=== PATIENT | female | born 1940 | race Hispanic/Latino ===

== ENCOUNTER → 2022-02-07 | Outpatient (CLI) | payer OTHER, MEDICARE | END | disposition home or self-care (01) | LOC: RAH 12:59 | PROVIDERS: ATTEND Internal Medicine | DX: I08.8 Other rheumatic multiple valve diseases (principal); I11.9 Hypertensive heart disease without heart failure; R06.09 Other forms of dyspnea | CPT/HCPCS: 71046; 93306 ==

== ENCOUNTER 2024-06-19 07:26 | Inpatient (IN) | payer OTHER, MEDICARE ==
[~2024-06-19] VITALS: Ht 157.5 cm; Wt 54.6 kg
--- NOTE | 2024-06-19 07:39 | NUR ---
PT JUST NOW ASSIGNED TO MY ED BED 11 BUT HAS NOT BEEN PLACED OF YET.
--- NOTE | 2024-06-19 07:40 | ERN ---
General Chief Complaint: Shortness of Breath Stated Complaint: COUGH AND CONGESTION Time Seen by MD: 07:39 Source: patient History of Present Illness Initial Comments Patient is an 84-year-old female with a past medical history of hypotension, diabetes, hypercholesteremia anemia, who presented to the emergency room today with a one day history of cough and shortness of breath. Patient was accompanied by the daughter who gave the history because patient is a poor historian. States that the we admitted at [facility] for about a week and had just been discharged yesterday and sent to rehab, however patient started with the symptoms and they decided to bring her to the emergency room for further evaluation and treatment. States that the cough was gradual in onset and productive of whitish phlegm. There was associated shortness of breath .Denies any fever, chills, chest pain, or palpitations. According to EMS who brought the patient to the ED, at home patient had oxygen saturation at 85%, patient was placed on 4 L of oxygen via nasal cannula and is presently maintaining saturation at 94%. Patient also complains of difficulty sleeping states that patient has not been able to sleep in the past 24 hours. Allergies: Coded Allergies: No Known Drug Allergies (Unverified Allergy, Unknown, 06/19/24) Home Meds Reported Medications Lorazepam (Lorazepam Intensol) 2 Mg/Ml Oral.conc, 0.5 MG PO Q4HPRN PRN for ANXIETY/AGITATION for 10 Days, #30 ML 0 Refills NEEDED 06/22/24 Discontinued Reported Medications Lorazepam (Lorazepam Intensol) 2 Mg/Ml Oral.conc, 0.25 ML PO Q4H for 20 Days, #30 ML 0 Refills NEEDED 06/22/24 Discontinued Scripts Sennosides (Senna) 8.6 Mg Tablet, 17.2 MG PO BID, #90 TAB Prov:MERLE KAPADIA MD 06/19/24 Rosuvastatin Calcium (Rosuvastatin Calcium) 40 Mg Tablet, 40 MG PO HS, #90 TAB Prov:MERLE KAPADIA MD 06/19/24 Cyclosporine (Restasis) 0.05 % Droperette, 1 EACH OP BID, #90 DROP Prov:MERLE KAPADIA MD 06/19/24 Pramipexole Di-HCl (Pramipexole Dihydrochloride) 1 Mg Tablet, 1 MG PO TID, #90 TAB Prov:MERLE KAPADIA MD 06/19/24 Potassium Chloride (K-Tab ER) 20 Meq Tablet.er, 20 MEQ PO DAILY, #90 TAB Prov:MERLE KAPADIA MD 06/19/24 Pantoprazole Sodium (Pantoprazole Sodium) 40 Mg Tablet.dr, 40 MG PO DAILY, #90 TAB Prov:MERLE KAPADIA MD 06/19/24 Nystatin (Nystatin) 100,000 Unit/Gram Oint, 1 APPL TP TID for 30 Days, #15 GM 0 Refills apply to affected area(s) FACE Prov:MERLE KAPADIA MD 06/19/24 Mupirocin (Mupirocin Ointment) 2 % Oint, 1 APPL TP TID for 30 Days, #22 GM 0 Refills apply to affected area(s) RIGHT THUMB Prov:MERLE KAPADIA MD 06/19/24 Polyethylene Glycol 3350 (Miralax) 17 Gram Powd.pack, 17 GM PO DAILY, #90 MG Prov:MERLE KAPADIA MD 06/19/24 Memantine HCl (Memantine HCl) 5 Mg Tablet, 5 MG PO HS, #90 TAB Prov:MERLE KAPADIA MD 06/19/24 Magnesium Oxide (Magnesium Oxide) 400 Mg Magnesium Tablet, 400 MG PO DAILY, #90 TAB Prov:MERLE KAPADIA MD 06/19/24 Loratadine (Loratadine) 10 Mg Tablet, 10 MG PO DAILY PRN for ALLERGIES, #90 TAB Prov:MERLE KAPADIA MD 06/19/24 Lidocaine (Lidocaine Pain Relief) 4 % Adh..patch, 1 EACH TP DAILY, #30 ADH.PATCH Prov:MERLE KAPADIA MD 06/19/24 Sitagliptin Phosphate (Januvia) 50 Mg Tablet, 50 MG PO DAILY, #90 TAB Prov:MERLE KAPADIA MD 06/19/24 Insulin Lispro (Humalog) 100 Unit/Ml Insuln.pen, 2 UNIT SQ AD, #3 SYRINGE TID AC AND HS SLIDING SCALE 70-149 = NO INSULIN 150-199=2 UNITS 200-249-3 UNITS 250-299=4 UNITS 300-349=5 UNITS >349= 6UNITS AND CALL PHYSICIAN Prov:MERLE KAPADIA MD 06/19/24 Gabapentin (Gabapentin) 400 Mg Capsule, 400 MG PO HS, #90 CAP Prov:MERLE KAPADIA MD 06/19/24 Apixaban (Eliquis) 2.5 Mg Tablet, 2.5 MG PO BID, #180 TAB Prov:MERLE KAPADIA MD 06/19/24 Cephalexin (Cephalexin) 250 Mg Tablet, 250 MG PO DAILY for 90 Days, #90 TAB Prov:MERLE KAPADIA MD 06/19/24 Amiodarone HCl (Amiodarone HCl) 200 Mg Tablet, 200 MG PO BID, #180 TAB Prov:MERLE KAPADIA MD 06/19/24 Acetaminophen (Acetaminophen) 325 Mg Tablet, 650 MG PO TID for 90 Days, #270 TAB Prov:MERLE KAPADIA MD 06/19/24 ROS Dictation Unable to get a Review of systems because of patients dementia and poor cognition Physical Exam Physical Exam Dictation General: Alert & Oriented, No acute distress. EENT: No conjunctival redness or discharge noted Tympanic membranes are clear, Normal hearing, Oral mucosa is moist, No pharyngeal erythema, No nasal discharge, No oral lesions. Neck: Non-tender, No jugular vein distention, No lymphadenopathy, No thyromegaly, Supple. Respiratory: Lungs are clear to auscultation, , Breath sounds are equal, No chest wall tenderness, _. Cardiovascular: Normal rate, Normal rhythm, No murmur, Good pulses equal in all extremities, Normal peripheral perfusion, No edema. Gastrointestinal: Soft, Non-tender, Non-distended, Normal bowel sounds, No organomegaly, _. Musculoskeletal: Normal range of motion, Normal strength, No tenderness, No swelling, No deformity, Normal gait. Integumentary: Warm, Dry, [place], Intact, No pallor, No rash. Neurologic: Alert, Oriented x4, Normal sensory, No focal defects Psychiatric: Cooperative, Appropriate mood & affect, Normal judgement, Non- suicidal. Results Laboratory and Microbiology Lab and Micro Result Laboratory Tests Test 06/19/24 08:11 06/19/24 08:13 06/19/24 08:17 White Blood Count 9.5 K/uL (4.8-10.8) Red Blood Count 4.37 MIL/uL (4.00-5.50) Hemoglobin 13.5 g/dL (12.0-16.0) Hematocrit 38.8 % (36-48) Mean Corpuscular Volume 88.8 fL (79-99) Mean Corpuscular Hemoglobin 30.9 pg (27.0-33.0) Mean Corpuscular Hemoglobin Concent 34.8 g/dL (32.0-36.0) Red Cell Distribution Width 15.1 % (11.0-15.5) Platelet Count 316 K/uL (130-400) Mean Platelet Volume 10.5 fL (7.5-10.5) Immature Granulocyte % (Auto) 0.7 % (0-1) Neutrophils (%) (Auto) 85.0 % (40.0-77.0) H Lymphocytes (%) (Auto) 5.5 % (21.0-51.0) L Monocytes (%) (Auto) 8.4 % (3.0-13.0) Eosinophils (%) (Auto) 0.3 % (0.0-8.0) Basophils (%) (Auto) 0.1 % (0.0-5.0) Neutrophils # (Auto) 8.1 K/uL (1.8-7.7) H Lymphocytes # (Auto) 0.5 K/uL (1.0-4.8) L Monocytes # (Auto) 0.8 K/uL (0.1-1.0) Eosinophils # (Auto) 0.03 K/uL (0.00-0.70) Basophils # (Auto) 0.01 K/uL (0.00-0.20) Absolute Immature Granulocyte (auto 0.07 K/uL (0-1) Nucleated Red Blood Cells 0.0 % (0.0-0.19) White Cell Morphology Comment See comments Sodium Level 132 mmol/L (136-145) L Potassium Level 3.0 mmol/L (3.5-5.1) *L Chloride Level 95 mmol/L (101-111) L Carbon Dioxide Level 33 mmol/L (21-32) H Blood Urea Nitrogen 7 mg/dL (7-18) Creatinine 0.7 mg/dL (0.5-1.0) Glomerular Filtration Rate Calc 86 mL/min (>90) Random Glucose 137 mg/dL (70-105) H Lactic Acid Level 1.5 mmol/L (0.8-2.5) Total Calcium 8.4 mg/dL (8.5-10.1) L Total Bilirubin 0.9 mg/dL (0.2-1.0) Aspartate Amino Transf (AST/SGOT) 140 U/L (10-37) H Alanine Aminotransferase (ALT/SGPT) 80 U/L (12-78) H Alkaline Phosphatase 138 U/L (50-136) H Troponin I High Sensitivity 24 ng/L (4-50) Total Protein 6.2 g/dL (6.0-8.3) Albumin 2.6 g/dL (3.5-5.0) L Lipase 14 U/L (16-77) L Blood Gas Specimen Type Arterial Arterial Blood pH 7.464 (7.350-7.450) Arterial Blood Partial Pressure CO2 36 mmHg (32-45) Arterial Blood Partial Pressure O2 52.2 mmHg (83.0-108.0) Arterial Blood HCO3 25.5 mmol/L (21.0-28.0) Arterial Blood Oxygen Saturation 89.0 % (94.0-98.0) L Arterial Blood Base Excess 2.1 mmol/L (-2.0-3.0) Blood Gas Temperature 37.0 CELSIUS (35.5-37.0) Blood Gas Flow-by 2.00 L/min (0.00-15.00) Blood Gas Vent Mode 2LNC (ROOM AIR) FiO2 28.0 % Blood Gas Specimen Comment RR MIGUEL Influenza Type A Antigen Positive For Type A Influenza Type B Antigen Negative For Type B SARS-CoV-2, RNA, NAAT NEGATIVE SARS CoV-2 MDM Potential differential diagnoses include: *Pneumonia * Acute respiratory failure with hypoxia *Dehydration *Hypokalemia Assessment: CBC was done in order to to rule any anemia, infections and to evaluate the overall health of the patient. and CMP was ordered in order to assess. various electrolytes, kidney function, liver function ,protein levels and blood glucose levels and administer medications according to the patient's complaint. Influenza a and B and COVID tests were done to rule out any viruses as a cause of the shortness of breath and cough, chest x-ray was done in order to rule out any effusion or pleural edema. Will order 1 Liter of LR for adequate hydration. I will re-evaluate the patient after treatment and diagnostic exams have returned to determine whether they require further testing, can be safely discharged home, or need admission for further treatment and evaluation. Given the social determinants of health affecting care, including literacy, access to medical care, prescription drug management, and [id number] drugs, I will ensure that treatment plans are tailored accordingly. Revaluation : Patient is alert and oriented. Patient's ABG shows oxygen 52.2, Chest xray shows pulmonary infiltrates, likely a pneumonia. Patient with respiratory distress and is currently on a ventimask. 0950: Discussed the case with Dr Kapadia, agreed to admit the patient for further evaluation and treatment. Disposition: Will admit in the hospital for further evaluation and management. Attestation: Patient's case was discussed with the ER MD. Reviewed the documentation, medical decision making and treatment plan. Agrees with the findings and plan of care. ED Course Orders Procedure Category Date Status Time Cbc With Differential LAB 06/19/24 Complete 07:40 Comprehensive LAB 06/19/24 Complete Metabolic Panel 07:40 Arterial Blood Gas RT 06/19/24 Transmitted 07:40 Chest 1vw RAD 06/19/24 Resulted 07:40 Urinalysis Profile LAB 06/19/24 Complete 07:40 Covid Rna Naat LAB 06/19/24 Complete 07:51 Lactic Acid LAB 06/19/24 Complete 07:53 Blood Cult JEANETH 06/19/24 Complete 07:53 12 Lead Ekg Tracing- EKG 06/19/24 Resulted Technical 07:53 Troponin I High LAB 06/19/24 Complete Sensitivity 07:53 0.9%Nacl 1000ml (Ns PHA 06/19/24 Complete 1000ml) 08:00 Arterial Blood Gas LAB 06/19/24 Complete 08:13 Influenza Type A & B, LAB 06/19/24 Complete Rapid 07:51 Ceftriaxone 1g Vial PHA 06/19/24 Complete (Rocephine 1g Inj) 09:00 Azithromycin 500mg+Ns PHA 06/19/24 Complete 250ml (Azithromyci 10:30 Lipase LAB 06/19/24 Complete 09:07 Us Abdominal Ruq\Ltd US 06/19/24 Resulted 09:07 Initiate Hypokalemia CPOE 06/19/24 Transmitted Po Half 09:09 Notify Physician If CPOE 06/19/24 Transmitted There Is 09:09 Notify Md On The Next CPOE 06/19/24 Transmitted 09:09 Notify Md On The CPOE 06/19/24 Transmitted Next(Cont.) 09:09 Vital Signs Date Time Temp Pulse Resp B/P (MAP) Pulse Ox O2 Delivery O2 Flow Rate FiO2 06/19/24 08:00 61 26 127/54 92 Nasal Cannula* 4 36 06/19/24 07:41 97.9 62 21 127/54 91 Nasal Cannula 2.0 DX & DISP Disposition: Inpatient Departure Impression: Primary Impression: Pneumonia Additional Impressions: Acute respiratory failure with hypoxia, Hypokalemia, Dehydration Critical Time: 30 minutes (Critical Care Procedure NoteAuthorized and Performed by: meTotal critical care time: Approximately 36 minutesDue to a high probability of clinically significant, life threatening deterioration, the patient required my highest level of preparedness to intervene emergently and I personally spent this critical care time directly and personally managing the patient. This critical care time included obtaining a history; examining the patient; pulse oximetry; ordering and review of studies; arranging urgent treatment with development of a management plan; evaluation of patient's response to treatment; frequent reassessment; and, discussions with other providers.This critical care time was performed to assess and manage the high probability of imminent, life-threatening deterioration that could result in multi-organ failure. It was exclusive of separately billable procedures and treating other patients and teaching time.Please see MDM section and the rest of the note for further information on patient assessment and treatment.) Assign Patient to: 0950:Discussed the case with Dr. Perez we will admit in the hospital for further evaluation and management Referrals: MERLE KAPADIA MD (PCP) I performed a substantive portion of the visit. I have reviewed and personally made and approve the management plan that is documented in the notes by myself with ROMA/resident. I acknowledged full responsibility for the patient's management plan. KANDY HATFIELD MD Jun 19, 2024 07:40 ADARSH SEARS DO Jun 25, 2024 20:00
--- NOTE | 2024-06-19 07:59 | NUR ---
PATIENT IS ORIENTED X1 AND UNABLE TO COMPLETE TRIAGE, WILL EDIT WHEN FAMILY COMES BY TO GET MORE DETAILS
[2024-06-19 08:15] LABS: ABG BASE EXCESS 2.1 mmol/L (-2.0-3.0); ABG HCO3 25.5 mmol/L (21.0-28.0); ABG PCO2 36 mmHg (32-45); ABG PH 7.464 (7.350-7.450); DEVICE COMMENT RR JESSE; PO2, ARTERIAL BG 52.2 mmHg (83.0-108.0); VENT MODE, BG 2LNC (ROOM AIR)
--- NOTE | 2024-06-19 08:33 | EKG ---
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
[2024-06-19 08:35] LABS: BASOPHILS # (AUTO) 0.01 K/uL (0.00-0.20); BASOPHILS % (AUTO) 0.1 % (0.0-5.0); EOSINOPHILS # (AUTO) 0.03 K/uL (0.00-0.70); EOSINOPHILS % (AUTO) 0.3 % (0.0-8.0); HEMATOCRIT 38.8 % (36-48); IMMATURE GRANULOCYTE ABSOLUTE 0.07 K/uL (0-1); LYMPHOCYTES # (AUTO) 0.5 K/uL (1.0-4.8); LYMPHOCYTES % (AUTO) 5.5 % (21.0-51.0); MEAN CORPUSCULAR HEMOGLOBIN 30.9 pg (27.0-33.0); MEAN CORPUSCULAR HGB CONC 34.8 g/dL (32.0-36.0); MEAN CORPUSCULAR VOLUME 88.8 fL (79-99); MONOCYTES # (AUTO) 0.8 K/uL (0.1-1.0); MONOCYTES % (AUTO) 8.4 % (3.0-13.0); NEUTROPHILS # (AUTO) 8.1 K/uL (1.8-7.7); PLATELET COUNT (AUTO) 316 K/uL (130-400); RED BLOOD CELL COUNT(AUTO) 4.37 MIL/uL (4.00-5.50); RED CELL DISTRIBUTION WIDTH 15.1 % (11.0-15.5); WHITE BLOOD COUNT (AUTO) 9.5 K/uL (4.8-10.8)
[2024-06-19] MEDS: 0.9%NACL 1000ML 1,000 ML IV ONE (08:45)
[2024-06-19] MEDS: cefTRIAXone 1G VIAL IVPB SCH (08:45)
[2024-06-19 08:49] LABS: ALBUMIN 2.6 g/dL (3.5-5.0); BILIRUBIN,TOTAL 0.9 mg/dL (0.2-1.0); CREATININE 0.7 mg/dL (0.5-1.0); TOTAL PROTEIN, SERUM 6.2 g/dL (6.0-8.3)
[2024-06-19 09:22] LABS: SARS-CoV-2, RNA, NAAT NEGATIVE SARS CoV-2 (NEGATIVE)
[2024-06-19 09:28] LABS: INFLUENZA TYPE B Negative For Type B (NEGATIVE)
[2024-06-19 09:51] LABS: INFLUENZA TYPE A Positive For Type A (NEGATIVE)
--- NOTE | 2024-06-19 09:51 | NUR ---
FLU A + MIGUEL KNOWLES MADE AWARE
--- NOTE | 2024-06-19 09:53 | NUR ---
PT PLACED ON DROPLET PRECAUTIONS
[2024-06-19] MEDS ORDERED: ALBUTEROL 0.083% 2.5 MG/3 ML INH IH PRN (10:00)
[2024-06-19] MEDS ORDERED: AZITHROMYCIN 500MG+NS 250ML 250 ML IVPB SCH (10:30)
[2024-06-19] MEDS ORDERED: MEMA5TAB16 PO (10:41)
[2024-06-19] MEDS ORDERED: CEPH250T PO (10:41)
[2024-06-19] MEDS ORDERED: AMIO200T68 PO (10:41)
[2024-06-19] MEDS ORDERED: MUPI22OI2 TP (10:41)
[2024-06-19] MEDS ORDERED: POTA-81 PO (10:41)
[2024-06-19] MEDS ORDERED: SENN8.6T32 PO (10:41)
[2024-06-19] MEDS ORDERED: LORA10TA7 PO (10:41)
[2024-06-19] MEDS ORDERED: PANT40TA54 PO (10:41)
[2024-06-19] MEDS ORDERED: APIX2.5T PO (10:41)
[2024-06-19] MEDS ORDERED: ROSU40TA88 PO (10:41)
[2024-06-19] MEDS ORDERED: GABA-534 PO (10:41)
[2024-06-19] MEDS ORDERED: NYST15OI4 TP (10:41)
[2024-06-19] MEDS ORDERED: MAGN400T51 PO (10:41)
[2024-06-19] MEDS ORDERED: ACET-3859 PO (10:41)
[2024-06-19] MEDS ORDERED: POLY17PO4 PO (10:41)
[2024-06-19] MEDS ORDERED: PRAM1TAB7 PO (10:41)
[2024-06-19] MEDS ORDERED: SITA50TA PO (10:41)
[2024-06-19] MEDS ORDERED: INSU100I15 SQ (10:41)
[2024-06-19] MEDS ORDERED: LIDO1ADH71 TP (10:41)
[2024-06-19] MEDS ORDERED: CYCL30DR OP (10:41)
--- NOTE | 2024-06-19 11:36 | HMCIMG ---
US ABDOMINAL RUQ\E\LTD HISTORY: Abdominal pain COMPARISON: None TECHNIQUE: Right upper quadrant abdominal ultrasound study was performed. FINDINGS: Liver measures 16 cm. Pancreas not well visualized. Gallbladder is distended. Liver is echogenic consistent with liver parenchymal disease. No gallstone is seen. Common duct measures 6 mm. No evidence of gallbladder wall thickening is seen. Right kidney measures 8.8 x 4.7 x 4.2 cm. No hydronephrosis is seen of the right kidney. Portal vein is patent. IMPRESSION: 1. No gallstones or ductal dilatation is seen. 2. No hydronephrosis is seen.
[2024-06-19 11:40] LABS: APPEARANCE,URINE CLEAR (CLEAR); BILIRUBIN,URINE NEGATIVE (NEGATIVE); COLOR,URINE LIGHT-YELLOW (YELLOW); GLUCOSE, URINE (UA) NEGATIVE (NEGATIVE); KETONES,URINE NEGATIVE (NEGATIVE); LEUKOCYTE ESTERASE ,URINE NEGATIVE Leu/uL (NEGATIVE); NITRATE,URINE NEGATIVE (NEGATIVE); OCCULT BLOOD,URINE NEGATIVE (NEGATIVE); PH,URINE 7.5 (5.0-8.0); PROTEIN,URINE 30 mg/dL (NEGATIVE); UROBILINOGEN,URINE 0.2 mg/dL (0.2-1.0)
[2024-06-19 11:49] VITALS: PULSE 63; RESP 20; O2SAT 97
[2024-06-19] MEDS: IpraTROPium/alBUTERol SULFATE 3 ML SOLUTION IH SCH (11:53)
[2024-06-19] MEDS: IpraTROPium/alBUTERol SULFATE 3 ML SOLUTION IH ONE (11:53)
--- NOTE | 2024-06-19 11:58 | HMCIMG ---
CHEST 1VW HISTORY: Shortness of breath COMPARISON: 02/07/2022 FINDINGS: A frontal projection of the chest was obtained. There are bilateral pulmonary infiltrates suggestive of pulmonary vascular congestion with possible superimposed pneumonitis. The heart is borderline enlarged. Degenerative changes are seen. No evidence of aortic calcification is seen. IMPRESSION: 1. Bilateral pulmonary infiltrates are seen suggestive of pulmonary vascular congestion with possible superimposed pneumonitis.
[2024-06-19] MEDS: IpraTROPium 0.5 MG/2.5 ML INH IH SCH (12:00)
--- NOTE | 2024-06-19 12:01 | NUR ---
SPEECH THERAPY NOTE: DINING ROOM BUSSER coordinated with RT Mario and ELENI Peña. Pt currently on ventimask at 40% due to desaturations. DINING ROOM BUSSER will follow up when patient tolerates regular nasal cannula or room air without desaturations. Recommend NPO and may consider short term alternate means of nutrition/hydration until appropriate for oral intake. All questions answered. Addendum: 06/19/[address] [facility] CHAMBERS Amended: Links added.
[2024-06-19 12:02] LABS: ADD UA MICROSCOPIC YES
[2024-06-19 12:07] LABS: MUCUS,URINE RARE LPF (None Seen); RBC,URINE 0-1 /HPF (0-1); SQUAMOUS EPITHELIAL CELL,UR RARE /HPF (0-2)
[2024-06-19] MEDS: 0.9%NACL 1000ML 1,000 ML IV SCH (12:08)
[2024-06-19] MEDS: CLINDAMYCIN IVPB 600MG/50ML 50 ML IV SCH (12:08)
[2024-06-19] MEDS: hydrOXYzine 50MG VIAL 50 MG/ML VIAL IM PRN (12:20)
--- NOTE | 2024-06-19 12:34 | NUR ---
FAMILY HAS BEEN ALTERNATING IN/OUT OF THE ROOM. ORDERS WERE OBTAINED FROM DR JONES FOR MEDICATIONS TO ASSIST PT IN RELAXING. PT IS NOT VERY COMPLIANT, ALTERED MENTITION (DEMENTIA) AND HAS BEEN PULLING OFF HER OXYGEN MASK. CURRENTLY I PLACED A N/C AT 3L IN THE MEANTIME.
--- NOTE | 2024-06-19 13:55 | NUR ---
PT CLEANED AND LINEN CHANGED/ADULT BRIEF FOR A LARGE URINE INCONTINENCE. PT TOLERATED WELL.
--- NOTE | 2024-06-19 14:29 | NUR ---
DCP: [facility] Per Bhakti at [facility], pt was discharged from to [facility] and family did not like it and took pt AMA and brought to ER requesting placement at [facility]. [facility] working on auth in hopes pt can avoid being admitted. Per Bhakti, they have recd auth for pt to go to [facility]. If Dr Kapadia approves pt can dc from er. recd call from Dr Kapadia. Pt will need to stay to stabilize before transfer to [facility]. Dr Kapadia states family is asking for information on hospice at [place]. Sw to visit with daughter and discuss
--- NOTE | 2024-06-19 14:52 | NUR ---
PT IS STILL PENDING A SPEECH EVALUATION
[2024-06-19] MEDS ORDERED: MAG/ALUM/SIMETH 30 ML UDCUP PO PRN (15:00)
[2024-06-19] MEDS ORDERED: LACTULOSE 20 GM/30 ML UDCUP PO PRN (15:00)
[2024-06-19] MEDS ORDERED: guaiFENesin-DM 200/20MG 10ML PO PRN (15:00)
--- NOTE | 2024-06-19 15:00 | NUR ---
MICHEL LEAD ENGINEER HAS BEEN IN TO SPEAK W/FAMILY.
[2024-06-19] MEDS: LORazepam 2 MG/ML 1 ML VIAL IVP PRN (15:14)
--- NOTE | 2024-06-19 15:33 | HP ---
HISTORY AND PHYSICAL Date of Visit: Jun 19, 2024 Time of Visit: 15:32 ADMISSION DATE: Jun 19, 2024 at 09:50 CC: ACUTE RESPIRATORY DISTRESS HPI: THIS IS A 84 YR OLD WOMAN WITH DEMENTIA, DM, HTN AND LUMBAR STENOSIS WHO WAS RECENTLY RELEASED FROM [facility] AFTER A PROLONGED HOSPITAL STAY FOR A UTI, DEHYDRATION, GENERALIZED DECONDITIONING, CONSTIPATION WITH BOWEL IMPACTION, PERSISTENT NAUSEA AND VOMITING AND A SEVERELY HYDROPIC GALL BLADDER 12 CM ASSOCIATED WITH METABOLIC ENCEPHALOPATHY AND BACTEREMIA X 2 WITH STAPH COAG NEG. 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 ONCE MEDICALLY TREATED AND STABILIZED THE FAMILY REQUESTED SNF PLACEMENT FOR REHAB AND POSSIBLE ALF CARE WELL THEY WERE NOT ABLE TO PROVIDE THE 24 HOUR CARE SHE NEEDED AT HOME. THEY INITIALLY CHOSE [place] BUT THEN CHANGED THERE MIND AND AGREED TO GO TO [facility]. IN THE MEANTIME AN ABDOMINAL CT OF THE ABDOMEN / GALL BLADDER WAS BENIGN. SHE DID BETTER ONCE HER BOWEL IMPACTION HAD RESOLVED. REPEAT FOLLOW UP BLOOD CULTURES WERE NEGATIVE AND SHE COMPLETED A COURSE OF PO ZYVOX. THE PATIENT CONTINUED TO HAVE INTERMITTENT EPISODES OF PSYCHOSIS IN THE EVENING AND NEEDED INTERMITTENT SEDATING MEDICATIONS TO HELP CONTROL HER BEHAVIOR. SHE CONTINUED WITH A VERY POOR APPETITE DUE TO HER UNDERLYING PROGRESSIVE DEMENTIA AND WAS GIVEN SOME NUTRITIONAL SUPPLEMENTS AND THE FAMILY WAS UPDATED ON HER POOR PROGNOSIS AND SEEMED TO UNDERSTAND AND WANTED TO PROCEED WITH SNF PLACEMENT. CODE STATUS WAS DISCUSSED BUT THEY WERE NOT READY FOR A DNR CODE STATUS OF YET BUT UNDERSTOOD HER OVERALL CONDITION WAS DECLINING. [facility] BUT UPON ADMISSION THE FAMILY DECIDED TO HAVE THE PATIENT LEAVE AMA BECAUSE IT WAS NOT TO THEIR LIKING AND DID NOT LIKE THE SERVICE. I SPOKE PERSONALLY TO THE DAUGHTER AND COULD NOT CONVINCE HER TO STAY AT LEAST THRU THE NIGHT TO TRY TO MAKE SURE WE COULD ARRANGE A SAFE DISCHARGE WITH ALL OF HER MEDICATIONS IN PLACE. SHE UNFORTUNATELY, ALREADY HAD HER IN A WHEELCHAIR AND WAS READY TO GO AND LEFT AMA. EARLY THIS AM THE DAUGHTER CALLED ME TO INFORM ME SHE CALLED EMS IN THE MIDDLE OF THE NIGHT BECAUSE SHE COULD NOT GET HER MOTHER TO SETTLE DOWN ALL NIGHT AND THEN SHE BEGAN TO HAVE ACUTE LABORED BREATHING AND CALLED EMS. THEY CONFIRMED SHE WAS DESATURATING AND PLACED HER ON O2 AND BROUG[place] [facility]. 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 ALF ANTICOAGULATION CHRONIC LBP WITH LUMBAR STENOSIS COPD 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 FIBROMYALGIA W CHRONIC PAINS DJD GEN MULT SITES GERD OSTEOPOROSIS RESTLESS LEG SYNDROME MAJOR DEPRESSION - SEVERE, SINGLE GENERALIZED ANXIETY D/O REFLUX ESOPHAGITIS ESSENTIAL TREMORS W PARKINSONIAN FEATURES HYPERLIPIDEMIA - MIXED SOCIAL HISTORY: [] FAMILY HISTORY: [] Allergies: Coded Allergies: No Known Drug Allergies (Unverified Allergy, Unknown, 06/19/24) Scheduled Acetaminophen (Acetaminophen), 650 MG PO TID Amiodarone HCl (Amiodarone HCl), 200 MG PO BID Apixaban (Eliquis), 2.5 MG PO BID Cephalexin (Cephalexin), 250 MG PO DAILY Cyclosporine (Restasis), 1 EACH OP BID Gabapentin (Gabapentin), 400 MG PO HS Insulin Lispro (Humalog), 2 UNIT SQ AD Lidocaine (Lidocaine Pain Relief), 1 EACH TP DAILY Magnesium Oxide (Magnesium Oxide), 400 MG PO DAILY Memantine HCl (Memantine HCl), 5 MG PO HS Mupirocin (Mupirocin Ointment), 1 APPL TP TID Nystatin (Nystatin), 1 APPL TP TID Pantoprazole Sodium (Pantoprazole Sodium), 40 MG PO DAILY Polyethylene Glycol 3350 (Miralax), 17 GM PO DAILY Potassium Chloride (K-Tab ER), 20 MEQ PO DAILY Pramipexole Di-HCl (Pramipexole Dihydrochloride), 1 MG PO TID Rosuvastatin Calcium (Rosuvastatin Calcium), 40 MG PO HS Sennosides (Senna), 17.2 MG PO BID Sitagliptin Phosphate (Januvia), 50 MG PO DAILY Scheduled PRN Loratadine (Loratadine), 10 MG PO DAILY PRN for ALLERGIES Review of Systems Normal Eyes:, Normal Ear/Nose/Mouth/Throat, Normal Cardiovascular:, Normal Gastrointestinal:, Normal Genitourinary:, Normal Integumentary:, Normal Musculoskeletal:, Normal Neurological:, Normal Endocrine:, Normal Hematologic/Lymphatic:, Normal Allergic/Immunologic:; Abnormal Constitutional: (AGITATED), Abnormal Respiratory: (MILD TO MODERATE RESPIRTORY DISTRESS ON O2 40% MASK), Abnormal Psychological: (VERY AGITATED AND RESTLESS) Additional ROS POOR HISTRORIAN AND HISTORY PER FAMILY AT BEDSIDE AND ER STAFF Physical Exam Vital Signs Vital Signs Date Time Temp Pulse Resp B/P (MAP) Pulse Ox O2 Delivery O2 Flow Rate FiO2 06/19/24 07:41 97.9 62 21 127/54 91 Nasal Cannula 2.0 06/19/24 11:49 40 Appearance: Other (ELDERLY RESTLESS) Eyes: Clear, PERRL, EOM Normal Respiratory: Abnormal (DISTANT BS WITH BILATERAL LL RALES AND MIDL WHEEZING INSP AND EXP) G.I.: Normal bowel sounds, No rebound tenderness Lymphatic: No lymphadenopathy neck, No lymphadenopathy axilla Musculoskeletal: Abnormal (IN BED WITH AGIATTION BUT MOVING ALL EXTERMITIES) Skin: Abnormal (FACIAL RASH - MILD ERYTHEMA) Neurology: Abnormal (MOVES ALL 4 EXTREMITIES SPEONTANOUSLY, CONFUSED ADN AGITATED) Psychology: Abnormal (POOR INSIGHT AND DISORIENTED) Diagnostics Laboratory Tests Test 06/19/24 08:11 06/19/24 08:13 06/19/24 08:17 06/19/24 11:14 Range/Units White Blood Count 9.5 4.8-10.8 K/uL Red Blood Count 4.37 4.00-5.50 MIL/uL Hemoglobin 13.5 12.0-16.0 g/dL Hematocrit 38.8 36-48 % Mean Corpuscular Volume 88.8 79-99 fL Mean Corpuscular Hemoglobin 30.9 27.0-33.0 pg Mean Corpuscular Hemoglobin Concent 34.8 32.0-36.0 g/dL Red Cell Distribution Width 15.1 11.0-15.5 % Platelet Count 316 130-400 K/uL Mean Platelet Volume 10.5 7.5-10.5 fL Immature Granulocyte % (Auto) 0.7 0-1 % Neutrophils (%) (Auto) 85.0 40.0-77.0 % Lymphocytes (%) (Auto) 5.5 21.0-51.0 % Monocytes (%) (Auto) 8.4 3.0-13.0 % Eosinophils (%) (Auto) 0.3 0.0-8.0 % Basophils (%) (Auto) 0.1 0.0-5.0 % Neutrophils # (Auto) 8.1 1.8-7.7 K/uL Lymphocytes # (Auto) 0.5 1.0-4.8 K/uL Monocytes # (Auto) 0.8 0.1-1.0 K/uL Eosinophils # (Auto) 0.03 0.00-0.70 K/uL Basophils # (Auto) 0.01 0.00-0.20 K/uL Absolute Immature Granulocyte (auto 0.07 0-1 K/uL Nucleated Red Blood Cells 0.0 0.0-0.19 % White Cell Morphology Comment See comments Sodium Level 132 136-145 mmol/L Potassium Level 3.0 3.5-5.1 mmol/L Chloride Level 95 101-111 mmol/L Carbon Dioxide Level 33 21-32 mmol/L Blood Urea Nitrogen 7 7-18 mg/dL Creatinine 0.7 0.5-1.0 mg/dL Glomerular Filtration Rate Calc 86 >90 mL/min Random Glucose 137 70-105 mg/dL Lactic Acid Level 1.5 0.8-2.5 mmol/L Total Calcium 8.4 8.5-10.1 mg/dL Total Bilirubin 0.9 0.2-1.0 mg/dL Aspartate Amino Transf (AST/SGOT) 140 10-37 U/L Alanine Aminotransferase (ALT/SGPT) 80 12-78 U/L Alkaline Phosphatase 138 50-136 U/L Troponin I High Sensitivity 24 4-50 ng/L Total Protein 6.2 6.0-8.3 g/dL Albumin 2.6 3.5-5.0 g/dL Lipase 14 16-77 U/L Blood Gas Specimen Type Arterial Arterial Blood pH 7.464 7.350-7.450 Arterial Blood Partial Pressure CO2 36 32-45 mmHg Arterial Blood Partial Pressure O2 52.2 83.0-108.0 mmHg Arterial Blood HCO3 25.5 21.0-28.0 mmol/L Arterial Blood Oxygen Saturation 89.0 94.0-98.0 % Arterial Blood Base Excess 2.1 -2.0-3.0 mmol/L Blood Gas Temperature 37.0 35.5-37.0 CELSIUS Blood Gas Flow-by 2.00 0.00-15.00 L/min Blood Gas Vent Mode 2LNC ROOM AIR FiO2 28.0 % Blood Gas Specimen Comment RR MIGUEL Influenza Type A Antigen Positive For Type A NEGATIVE Influenza Type B Antigen Negative For Type B NEGATIVE SARS-CoV-2, RNA, NAAT NEGATIVE SARS CoV-2 NEGATIVE Urine Color LIGHT-YELLOW YELLOW Urine Appearance CLEAR CLEAR Urine pH 7.5 5.0-8.0 Urine Specific [place]field 1.011 1.001-1.031 Urine Protein 30 NEGATIVE mg/dL Urine Glucose (UA) NEGATIVE NEGATIVE mg/dL Urine Ketones NEGATIVE NEGATIVE mg/dL Urine Occult Blood NEGATIVE NEGATIVE Urine Nitrate NEGATIVE NEGATIVE Urine Bilirubin NEGATIVE NEGATIVE mg/dL Urine Urobilinogen 0.2 0.2-1.0 mg/dL Urine Leukocyte Esterase NEGATIVE NEGATIVE Kristy/uL Urine RBC 0-1 0-1 /HPF Urine WBC 2-5 0-1 /HPF Urine Squamous Epithelial Cells RARE 0-2 /HPF Urine Bacteria None None Seen /HPF Assessment/Plan Assessment/Plan ASSESSMENT: THIS IS A 84 YR OLD WOMAN WITH HISTORY OF RECENT UTI DEHYDRATION GENERALIZED DECONDITIONING SEVERELY HYDROPIC GALL BLADDER 12 CM HX METABOLIC ENCEPHALOPATHY HX BACTEREMIA X 2 GPC - STAPH COAG NEG HX ABD CT OF THE ABDOMEN / GALL BLADDER - BENIGN - 06/2024 PROGRESSIVE DEMENTIA WITH BEHAVIORAL D/O GABAPENTIN WITHDRAWAL PAROX AFIB 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 PRIVACY ANALYST ANTICOAGULATION CHRONIC LBP WITH LUMBAR STENOSIS COPD 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 FIBROMYALGIA W CHRONIC PAINS DJD GEN MULT SITES GERD OSTEOPOROSIS RESTLESS LEG SYNDROME MAJOR DEPRESSION - SEVERE, SINGLE GENERALIZED ANXIETY D/O REFLUX ESOPHAGITIS ESSENTIAL TREMORS W PARKINSONIAN FEATURES HYPERLIPIDEMIA - MIXED SHE PRESENTED WITH ACUTE HYPOXIC RESPIRATORY FAILURE POSITIVE FO H FLU A ASPIRATION PNEUMONIA COPD EXACERBATION METABOLIC ENCEPHALOPATHY FAILURE TO THRIVE DEHYDRATION PLAN: STARTED ON TAMIFLU, STARTED ON CLINDAMYCIN IV NEBS SCHEDULED AND PRN O2 SUPPLEMENTATION WILL MONITOR GLUCOSE AND CONT INSULIN NEEDED HYDRATE WITH IVF SUPPLEMENT ELECTROLYTES STRESS ULCER PROPHYLAXIS DVT PROPHYLAXIS HAD A LONG DISCUSSION WITH FAMILY AND NOW ARE AGREEING TO A DNR CODE STATUS AND IMPLEMENTED ALSO DISCUSSED AND AGREEING TO HOSPICE CONSIDERATION THEY ARE WANTING SNF PLACEMENT FOR PRIVACY ANALYST CARE CONT SUPPORTIVE MEASURES PROGNOSIS REMAINS GUARDED AND THE FAMILY IS WELL AWARE MERLE JONES MD Jun 19, 2024 15:33
--- NOTE | 2024-06-19 15:38 | NUR ---
DNR STATUS: FAMILY HAS SIGNED BOTH THE IN HOSPITAL/OUT OF HOSPITAL DNR FORM
[2024-06-19] MEDS: PoTASSium chloRIDE 20MEQ/100ML 100 ML IV PRN (15:48)
--- NOTE | 2024-06-19 15:56 | NUR ---
Emelyn graves in [facility] - 06/19/24 at 1949 by [email or web address] HOSPITALIST TEAM AT BEDSIDE AGAIN AT THIS TIME
--- NOTE | 2024-06-19 16:00 | NUR ---
SPEECH THERAPY TO EVALUATE PT TOMORROW PER ADOLFO
--- NOTE | 2024-06-19 16:10 | NUR ---
AKASH KNOWLES FROM [facility] HERE TO SPEAK W/FAMILY.
--- NOTE | 2024-06-19 16:17 | NUR ---
DCP: [facility] spoke to daughters regarding hospice and code status. Daughters in agreement for hospice at [place]. Daughter in agreement with Dr Kapadia recommendation for [facility] to provider hospice services. Consent and OOHDNR signed and on chart. Referral made to Kendell to begin process and pt be ready set up when medically cleared Addendum: 06/19/24 at 1628 by JOVANNI JACKSON Amended: Links added.
[2024-06-19 19:13] VITALS: PULSE 70; RESP 18
[2024-06-19 19:14] VITALS: PULSE 70; RESP 18; O2SAT 92
--- NOTE | 2024-06-19 19:27 | NUR ---
REPORT ENDORSED TO JENNIFER KNOWLES
[2024-06-19] MEDS: SENNOSIDES 8.6 MG TABLET PO SCH (21:00)
[2024-06-19] MEDS: AMIOdarone 200 MG TABLET PO SCH (21:00)
[2024-06-19] MEDS: OSELTAMIVIR PHOSPHATE 75 MG CAP PO SCH (21:00)
[2024-06-19] MEDS: APIXaban 2.5 MG TABLET PO SCH (21:00)
[2024-06-19] MEDS: GABApentin 100 MG CAPSULE PO SCH (21:00)
[2024-06-19] MEDS: PRAMIpexole DI-HCL 0.25 MG TABLET PO SCH (21:00)
[2024-06-19] MEDS: acetaMINOPHEN 325 MG TAB PO SCH (21:00)
[2024-06-19] MEDS: NYSTATIN TP SCH (21:56)
[2024-06-19] MEDS: MUPIROCIN OINTMENT 22 GM TUBE TP SCH (21:56)
--- NOTE | 2024-06-19 22:54 | NUR ---
CHANGED OF URINARY INCONTINENCE.
[2024-06-19 23:00] VITALS: BP 134/57; PULSE 72; RESP 28; TEMP 100.1; O2SAT 90
[2024-06-19 23:54] VITALS: PULSE 70; RESP 18; RESP 22; O2SAT 92
[2024-06-20] VITALS (10 sets, daily range): BP systolic 96–152; BP diastolic 46–95; PULSE 67–85; RESP 16–28; TEMP 98.1–99.7; O2SAT 82–93
[2024-06-20] MEDS: PANTOPrazole 40 MG TAB DR PO SCH (09:00)
[2024-06-20] MEDS: PoTASSium chl 10% ELIXIR 20MEQ 20 MEQ/15 ML UDCUP PO SCH (09:00)
[2024-06-20] MEDS: MAGNESIUM OXIDE 400 MG TABLET PO SCH (09:00)
[2024-06-20] MEDS: polyETHYLene GLYCol 3350 17 GM POWD.PACK PO SCH (09:00)
[2024-06-20] MEDS: linAGLIPtin 5 MG TABLET PO SCH (09:00)
--- NOTE | 2024-06-20 09:00 | NUR ---
PATIENT VERY ANXIOUS REMOVING OXYGEN AND TRYING TO PULL OUT IV AND KICKING LEGS OVER BED. OXYGEN REPLACED ATIVAN GIVEN ORDERED. FAMILY NOW AT BEDSIDE
[2024-06-20] MEDS ORDERED: levoFLOXacin 500 MG/D5W 100 ML IV SCH (09:30)
[2024-06-20] MEDS: LIDOCAINE 4% ADH..PATCH TP SCH (09:58)
--- NOTE | 2024-06-20 10:27 | NUR ---
Per Kendell, he visited with pt and daughter. Pt very anxious and is being medicated, dose may need to be adjusted by Dr Kapadia when rounds. HE will wait and see if Dr Kapadia recommends GIP or not. Kendell to follow up after noon
[2024-06-20 10:41] LABS: HEMATOCRIT 33.3 % (36-48); MEAN CORPUSCULAR HGB CONC 34.2 g/dL (32.0-36.0); MEAN CORPUSCULAR VOLUME 90.5 fL (79-99); RED BLOOD CELL COUNT(AUTO) 3.68 MIL/uL (4.00-5.50); RED CELL DISTRIBUTION WIDTH 15.3 % (11.0-15.5); WHITE BLOOD COUNT (AUTO) 11.7 K/uL (4.8-10.8)
[2024-06-20 10:51] LABS: CREATININE 0.6 mg/dL (0.5-1.0); POTASSIUM 3.3 mmol/L (3.5-5.1)
--- NOTE | 2024-06-20 11:33 | NUR ---
SPOKE WITH FAMILY MEMBER SHERRILL ESCALANTE. PER DAUGHTER SHE ONLY WANTS COMFORT MEDS FOR PATIENT. DOES NOT WANT ANYTHING INVASIVE DONE. STATES ONLY WANTS HER MOM TO BE COMFORTABLE.DR JONES MADE AWARE OF HER DECISION
[2024-06-20] MEDS: levoFLOXacin 500 MG/D5W 100 ML IV SCH (12:05)
--- NOTE | 2024-06-20 12:28 | PN ---
Subjective Review of Systems PROGRESS NOTE Date of Visit: Jun 20, 2024 Time of Visit: 12:24 Events since last encounter CONTINUES WITH RESPIRATORY DISTRESS Subjective ON 50% FIO2 General: No Fever, No Chills, No Night Sweats, No Fatigue, No Malaise, No Appetite, No Other HEENT: No Head Aches, No Visual Changes, No Eye Pain, No Ear Pain, No Dys phasia, No Sinus Congestion, No Post Nasal Drip, No Sore Throat, No Other Pulmonary: Dyspnea; No Cough, No Pleuritic Chest Pain, No Other Cardiovascular: No: Chest Pain, Palpitations, Orthopnea, Paroxysmal Noc. D yspnea, Edema, Lt Headedness, Other Gastrointestinal: No: Nausea, Vomiting, Abdominal Pain, Diarrhea, Constipation, Melena, Hematochezia, Other Genitourinary: No Dysuria, No Frequency, No Incontinence, No Hematuria, No Retention, No Other Musculoskeletal: back pain; No: other, neck pain, shoulder pain, arm pain, hand pain, leg pain, foot pain Skin: No Urticaria, No Rash, No Other Neurological: Weakness, Confusion; No: Numbness, Incoordination, Change in speech, Seizures, Other Objective Vitals and I/O Vital Sign (Last 24 Hours) 06/20/24 06/20/24 11:16 12:00 Temp 99.7 Pulse 70 Resp 16 B/P (MAP) 152/95 Pulse Ox 82 O2 Delivery Nasal Cannula O2 Flow Rate 15.0 FiO2 100 Intake & Output (last 24hrs) 06/19/24 06/19/24 06/20/24 15:00 23:00 07:00 Intake Total 1850.0 ml Balance 1850.0 ml General: moderate distress HEENT: Atraumatic, PERRLA Neck: Supple, No JVD Lungs: Other (BILATERAL WHEZZING) Heart: Regular rate, Regular rhythm, Normal S1 Abdomen: Normal bowel sounds, Soft, No masses Extremities: No clubbing, No cyanosis, No edema Skin: No significant lesion Neuro: Other (RESTING IN BED) Psych/Mental Status: Other (INHCOHERENT) Results RADIOLOGY: [] EKG: [] Laboratory Tests Test 06/20/24 05:04 06/20/24 10:20 Whole Blood Glucose 138 MG/DL (70-110) H White Blood Count 11.7 K/uL (4.8-10.8) H Red Blood Count 3.68 MIL/uL (4.00-5.50) L Hemoglobin 11.4 g/dL (12.0-16.0) L Hematocrit 33.3 % (36-48) L Mean Corpuscular Volume 90.5 fL (79-99) Mean Corpuscular Hemoglobin 31.0 pg (27.0-33.0) Mean Corpuscular Hemoglobin Concent 34.2 g/dL (32.0-36.0) Red Cell Distribution Width 15.3 % (11.0-15.5) Platelet Count 231 K/uL (130-400) # Mean Platelet Volume 10.3 fL (7.5-10.5) Nucleated Red Blood Cells 0.0 % (0.0-0.19) Sodium Level 139 mmol/L (136-145) Potassium Level 3.3 mmol/L (3.5-5.1) L Chloride Level 104 mmol/L (101-111) Carbon Dioxide Level 27 mmol/L (21-32) Blood Urea Nitrogen 7 mg/dL (7-18) Creatinine 0.6 mg/dL (0.5-1.0) Glomerular Filtration Rate Calc 89 mL/min (>90) Random Glucose 149 mg/dL (70-105) H Total Calcium 7.8 mg/dL (8.5-10.1) L Medications Current Medications Sodium Chloride 1,000 ml @ 0 mls/hr ONCE ONCE IV Last administered on 06/19/24at 08:45; Start 06/19/24 at 08:00; Stop 06/19/24 at 08:02; Status DC Ceftriaxone Sodium 1 gm Q24H IVPB Last administered on 06/19/24at 08:45; Start 06/19/24 at 09:00; Stop 06/19/24 at 14:32; Status DC Azithromycin 250 ml @ 250 mls/hr Q24H IVPB; Start 06/19/24 at 10:30; Stop 06/19/24 at 14:32; Status DC Albuterol 1 UDVIAL [id number] IH; Start 06/19/24 at 12:00; Stop 06/19/24 at 12:18; Status DC Albuterol Sulfate 2.5MG [id number] PRN IH; Start 06/19/24 at 10:00; Stop 07/19/24 at 09:59 Sodium Chloride 1,000 ml @ 100 mls/hr Q10H IV Last administered on 06/19/24at 12:08; Start 06/19/24 at 10:00; Stop 07/19/24 at 09:59 Clindamycin HCl/ Dextrose 50 ml @ 100 mls/hr Q8H IV Last administered on 06/20/24at 09:58; Start 06/19/24 at 10:00; Stop 06/29/24 at 09:59 Potassium Chloride 100 ml @ 50 mls/hr AD PRN IV Last administered on 06/19/24at 22:23; Start 06/19/24 at 10:00; Stop 07/19/24 at 09:59 Oseltamivir Phosphate 75 mg BID PO; Start 06/19/24 at 21:00; Stop 06/24/24 at 20:59 Albuterol 1 udvial STK-MED ONCE IH; Start 06/19/24 at 10:51; Stop 06/19/24 at 10:51; Status DC Hydroxyzine HCl 25 mg Q6H6 PRN IM Last administered on 06/19/24at 12:20; Start 06/19/24 at 12:30; Stop 07/19/24 at 12:29 Ipratropium Nellis 0.5 MG [id number] IH Last administered on 06/20/24at 11:12; Start 06/19/24 at 12:00; Stop 07/19/24 at 11:59 Acetaminophen 650 mg TID PO; Start 06/19/24 at 21:00; Stop 07/19/24 at 20:59 Amiodarone HCl 200 mg BID PO; Start 06/19/24 at 21:00; Stop 07/19/24 at 20:59 Apixaban 2.5 mg BID PO; Start 06/19/24 at 21:00; Stop 07/19/24 at 20:59 Lidocaine 1 each DAILY TP Last administered on 06/20/24at 09:58; Start 06/20/24 at 09:00; Stop 07/20/24 at 08:59 Mupirocin 1 APPL TP TID TID TP Last administered on 06/20/24at 09:59; Start 06/19/24 at 21:00; Stop 07/19/24 at 20:59 Nystatin APPLY TO AFFECTED AREA FACE TID TP Last administered on 06/20/24at 09:59; Start 06/19/24 at 21:00; Stop 07/19/24 at 20:59 Pantoprazole Sodium 40 mg DAILY PO; Start 06/20/24 at 09:00; Stop 07/20/24 at 08:59 Polyethylene Glycol 17 gm DAILY PO; Start 06/20/24 at 09:00; Stop 07/20/24 at 08:59 Sennosides 2 tab BID PO; Start 06/19/24 at 21:00; Stop 07/19/24 at 20:59 Gabapentin 400 mg HS PO; Start 06/19/24 at 21:00; Stop 06/20/24 at 09:17; Status DC Magnesium Oxide 400 mg DAILY PO; Start 06/20/24 at 09:00; Stop 07/20/24 at 08:59 Potassium Chloride 20 meq DAILY PO; Start 06/20/24 at 09:00; Stop 07/20/24 at 08:59 Pramipexole Dihydrochloride 1 mg TID PO; Start 06/19/24 at 21:00; Stop 07/19/24 at 20:59 Linagliptin 5 mg DAILY PO; Start 06/20/24 at 09:00; Stop 07/20/24 at 08:59 Al Hydroxide/Mg Hydroxide 30 ml Q6H PRN PO; Start 06/19/24 at 15:00; Stop 07/19/24 at 14:59 Lactulose 20 gm BID PRN PO; Start 06/19/24 at 15:00; Stop 07/19/24 at 14:59 Guaifenesin/ Dextromethorphan 10 ml Q4H PRN PO; Start 06/19/24 at 15:00; Stop 07/19/24 at 14:59 Lorazepam 0.5 mg Q4H PRN IVP Last administered on 06/20/24at 09:28; Start at 15:00; Stop 06/26/24 at 14:59 Levofloxacin/ Dextrose 500 mg Q24H IV; Start 06/20/24 at 09:30; Stop 06/20/24 at 11:19; Status DC Gabapentin 100 mg HS PO; Start 06/20/24 at 21:00; Stop 07/19/24 at 20:59 Gabapentin 300 mg HS PO; Start 06/20/24 at 21:00; Stop 07/20/24 at 20:59 Levofloxacin/ Dextrose 500 mg Q24H IV Last administered on 06/20/24at 12:05; Start 06/20/24 at 12:00; Stop 06/30/24 at 11:59 Assessment/Plan ASSESSMENT: THIS IS A 84 YR OLD WOMAN WITH HISTORY OF RECENT UTI DEHYDRATION GENERALIZED DECONDITIONING SEVERELY HYDROPIC GALL BLADDER 12 CM HX METABOLIC ENCEPHALOPATHY HX BACTEREMIA X 2 GPC - STAPH COAG NEG HX ABD CT OF THE ABDOMEN / GALL BLADDER - BENIGN - 06/2024 PROGRESSIVE DEMENTIA WITH BEHAVIORAL D/O GABAPENTIN WITHDRAWAL PAROX AFIB 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 RESIDENTIAL ANTICOAGULATION CHRONIC LBP WITH LUMBAR STENOSIS COPD 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 FIBROMYALGIA W CHRONIC PAINS DJD GEN MULT SITES GERD OSTEOPOROSIS RESTLESS LEG SYNDROME MAJOR DEPRESSION - SEVERE, SINGLE GENERALIZED ANXIETY D/O REFLUX ESOPHAGITIS ESSENTIAL TREMORS W PARKINSONIAN FEATURES HYPERLIPIDEMIA - MIXED SHE PRESENTED WITH ACUTE HYPOXIC RESPIRATORY FAILURE POSITIVE FO H FLU A ASPIRATION PNEUMONIA COPD EXACERBATION METABOLIC ENCEPHALOPATHY FAILURE TO THRIVE DEHYDRATION DYSPHAGIA DNR CODE STATUS PLAN: CONT NPO WITH ASPIRATION PRECAUTIONS FAMILY ONLY WANTING COMFORT MEASURES AND HAS DECIDED AGAINST AN NG FOR MEDS D/C ALL PO MEDS CONT ON CLINDAMYCIN IV AND ADD LEVAQUIN NEBS SCHEDULED AND PRN O2 SUPPLEMENTATION WILL MONITOR GLUCOSE AND CONT INSULIN NEEDED HYDRATE WITH IVF SUPPLEMENT ELECTROLYTES STRESS ULCER PROPHYLAXIS DVT PROPHYLAXIS HOSPICE CONSULTED AND HAS MET WITH FAMILY CONT SUPPORTIVE MEASURES PROGNOSIS REMAINS GUARDED AND THE FAMILY IS WELL AWARE ANSWERED ALL OF FAMILY QUESTIONS AT BEDSIDE MERLE JONES MD Jun 20, 2024 12:28
[2024-06-20] MEDS ORDERED: acetaMINOPHEN 650 MG SUPPOSITORY RC PRN (13:00)
[2024-06-20] MEDS ORDERED: morPHINE 4 MG SYG IVP PRN (13:00)
[2024-06-20] MEDS: morPHINE 2 MG SYG IVP PRN (13:26)
[2024-06-20] MEDS: IpraTROPium 0.5 MG/2.5 ML INH IH SCH (13:55)
[2024-06-20] MEDS ORDERED: GABApentin 100 MG CAPSULE PO SCH (21:00)
[2024-06-20] MEDS ORDERED: GABAPENTIN 300 MG CAPSULE PO SCH (21:00)
[2024-06-20] MEDS: CLINDAMYCIN IVPB 600MG/50ML 50 ML IV SCH (21:17)
[2024-06-21 04:00] VITALS: BP 118/54; PULSE 75; RESP 16; TEMP 97.8
[2024-06-21 06:23] VITALS: PULSE 73; RESP 18
[2024-06-21 06:26] VITALS: PULSE 73; RESP 22; O2SAT 90
[2024-06-21 07:05] VITALS: BP 104/49; PULSE 74; RESP 14; TEMP 97.7
[2024-06-21 11:06] VITALS: PULSE 64; RESP 20; O2SAT 88
[2024-06-21 11:50] VITALS: BP 125/66; PULSE 74; RESP 14; TEMP 98.4
[2024-06-21] MEDS: LORazepam 2 MG/ML 1 ML VIAL IVP PRN (12:20)
[2024-06-21] MEDS: levoFLOXacin 500 MG/D5W 100 ML 100 ML IV SCH (12:20)
--- NOTE | 2024-06-21 14:04 | DS ---
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 There are bilateral pulmonary infiltrates suggestive of pulmonary vascular congestion with possible superimposed pneumonitis. The heart is borderline enlarged. Degenerative changes are seen. No evidence of aortic calcification is seen. IMPRESSION: Bilateral pulmonary infiltrates are seen suggestive of pulmonary vascular congestion with possible superimposed pneumonitis. US ABDOMINAL RUQ\E\LTD FINDINGS: Liver measures 16 cm. Pancreas not well visualized. Gallbladder is distended. Liver is echogenic consistent with liver parenchymal disease. No gallstone is seen. Common duct measures 6 mm. No evidence of gallbladder wall thickening is seen. Right kidney measures 8.8 x 4.7 x 4.2 cm. No hydronephrosis is seen of the right kidney. Portal vein is patent. IMPRESSION: 1. No gallstones or ductal dilatation is seen. 2. No hydronephrosis is seen. HOSPITAL COURSE: THIS IS A 84 YR OLD WOMAN WITH THE ABOVE PMH WHO PRESENTED AFTER A [place]OLONGED HOSP[place] [facility] [place] [facility] ONLY TO HAVE THE FAMILY SIGN HER OUT AMA SHORTLY AFTER BEING ADMITTED. SHE THEN DECOMPENSATED AT HOME WITH NO MEDICATION REGIMEN TO FOLLOW AND WAS SENT VIA EMS TO [facility] [place] [place] [facility] AND FOUND TO HAVE ACUTE HYPOXIC RESPIRATORY FAILURE, POSITIVE FO H FLU A, ASPIRATION PNEUMONIA, COPD EXACERBATION WITH ACUTE METABOLIC ENCEPHALOPATHY AND FAILURE TO THRIVE WITH DEHYDRATION DYSPHAGIA. SHE CONTINUED TO DECOMPENSATE DESPITE ACUTE THERAPY AND THE FAMILY OPTED FOR COMFORT CARE MEASURES. SHE WAS THEN TRANSITIONED INTO INPATIENT HOSPICE WITH [facility] FOR TERMINAL COMFORT CARE. DIET: COMFORT MEALS ACTIVITY: BED REST CONDITION: TERMINAL EQUIPMENT: NONE FOLLOW UP APPOINTMENT(S): PRN DISPOSITION: INPATIENT HOSPICE WITH [facility] CODE STATUS: DNR/DNI MEDICATION RECONCILIATION: COMFORT MEDICATIONS PER HOSPICE ^ Home Meds Discontinued Scripts Sennosides (Senna) 8.6 Mg Tablet, 17.2 MG PO BID, #90 TAB Prov:MERLE KAPADIA MD 06/19/24 Rosuvastatin Calcium (Rosuvastatin Calcium) 40 Mg Tablet, 40 MG PO HS, #90 TAB Prov:MERLE KAPADIA MD 06/19/24 Cyclosporine (Restasis) 0.05 % Droperette, 1 EACH OP BID, #90 DROP Prov:MERLE KAPADIA MD 06/19/24 Pramipexole Di-HCl (Pramipexole Dihydrochloride) 1 Mg Tablet, 1 MG PO TID, #90 TAB Prov:MERLE KAPADIA MD 06/19/24 Potassium Chloride (K-Tab ER) 20 Meq Tablet.er, 20 MEQ PO DAILY, #90 TAB Prov:MERLE KAPADIA MD 06/19/24 Pantoprazole Sodium (Pantoprazole Sodium) 40 Mg Tablet.dr, 40 MG PO DAILY, #90 TAB Prov:MERLE KAPADIA MD 06/19/24 Nystatin (Nystatin) 100,000 Unit/Gram Oint, 1 APPL TP TID for 30 Days, #15 GM 0 Refills apply to affected area(s) FACE Prov:MERLE KAPADIA MD 06/19/24 Mupirocin (Mupirocin Ointment) 2 % Oint, 1 APPL TP TID for 30 Days, #22 GM 0 Refills apply to affected area(s) RIGHT THUMB Prov:MERLE KAPADIA MD 06/19/24 Polyethylene Glycol 3350 (Miralax) 17 Gram Powd.pack, 17 GM PO DAILY, #90 MG Prov:MERLE KAPADIA MD 06/19/24 Memantine HCl (Memantine HCl) 5 Mg Tablet, 5 MG PO HS, #90 TAB Prov:MERLE KAPADIA MD 06/19/24 Magnesium Oxide (Magnesium Oxide) 400 Mg Magnesium Tablet, 400 MG PO DAILY, #90 TAB Prov:MERLE KAPADIA MD 06/19/24 Loratadine (Loratadine) 10 Mg Tablet, 10 MG PO DAILY PRN for ALLERGIES, #90 TAB Prov:MERLE KAPADIA MD 06/19/24 Lidocaine (Lidocaine Pain Relief) 4 % Adh..patch, 1 EACH TP DAILY, #30 ADH.PATCH Prov:MERLE KAPADIA MD 06/19/24 Sitagliptin Phosphate (Januvia) 50 Mg Tablet, 50 MG PO DAILY, #90 TAB Prov:MERLE KAPADIA MD 06/19/24 Insulin Lispro (Humalog) 100 Unit/Ml Insuln.pen, 2 UNIT SQ AD, #3 SYRINGE TID AC AND HS SLIDING SCALE 70-149 = NO INSULIN 150-199=2 UNITS 200-249-3 UNITS 250-299=4 UNITS 300-349=5 UNITS >349= 6UNITS AND CALL PHYSICIAN Prov:MERLE KAPADIA MD 06/19/24 Gabapentin (Gabapentin) 400 Mg Capsule, 400 MG PO HS, #90 CAP Prov:MERLE KAPADIA MD 06/19/24 Apixaban (Eliquis) 2.5 Mg Tablet, 2.5 MG PO BID, #180 TAB Prov:MERLE KAPADIA MD 06/19/24 Cephalexin (Cephalexin) 250 Mg Tablet, 250 MG PO DAILY for 90 Days, #90 TAB Prov:MERLE KAPADIA MD 06/19/24 Amiodarone HCl (Amiodarone HCl) 200 Mg Tablet, 200 MG PO BID, #180 TAB Prov:MERLE KAPADIA MD 06/19/24 Acetaminophen (Acetaminophen) 325 Mg Tablet, 650 MG PO TID for 90 Days, #270 TAB Prov:MERLE KAPADIA MD 06/19/24 MERLE KAPADIA MD Jun 21, 2024 14:04
[2024-06-22] MEDS ORDERED: LORA2ORA PO ×2 (21:19→21:23)
== END 2024-06-21 11:19 | disposition hospice, inpatient (51) | DRG 189 ==
LOC: EDH 07:26 → EDHIP 09:50 → 4BH 21:35
PROVIDERS: ADMIT Internal Medicine; ATTEND Internal Medicine
DX: J96.01 Acute respiratory failure with hypoxia (principal); J69.0 Pneumonitis due to inhalation of food and vomit; G93.41 Metabolic encephalopathy; J10.00 Influenza due to other identified influenza virus with unspecified type of pneumonia; J44.1 Chronic obstructive pulmonary disease with (acute) exacerbation; D68.69 Other thrombophilia; F03.93 Unspecified dementia, unspecified severity, with mood disturbance; J44.0 Chronic obstructive pulmonary disease with (acute) lower respiratory infection; Z66 Do not resuscitate; R62.7 Adult failure to thrive; E86.0 Dehydration; E11.22 Type 2 diabetes mellitus with diabetic chronic kidney disease; Z20.822 Contact with and (suspected) exposure to COVID-19; E78.00 Pure hypercholesterolemia, unspecified; F41.1 Generalized anxiety disorder; G25.0 Essential tremor; G25.81 Restless legs syndrome; G89.29 Other chronic pain; E78.2 Mixed hyperlipidemia; E11.43 Type 2 diabetes mellitus with diabetic autonomic (poly)neuropathy; G20.A1 Parkinson's disease without dyskinesia, without mention of fluctuations; I12.9 Hypertensive chronic kidney disease with stage 1 through stage 4 chronic kidney disease, or unspecified chronic kidney disease; I48.0 Paroxysmal atrial fibrillation; K21.00 Gastro-esophageal reflux disease with esophagitis, without bleeding; K59.00 Constipation, unspecified; M48.061 Spinal stenosis, lumbar region without neurogenic claudication; M79.7 Fibromyalgia; M81.0 Age-related osteoporosis without current pathological fracture; N18.2 Chronic kidney disease, stage 2 (mild); Z79.01 Long term (current) use of anticoagulants; Z51.5 Encounter for palliative care; Z79.4 Long term (current) use of insulin; Z79.84 Long term (current) use of oral hypoglycemic drugs; Z79.899 Other long term (current) drug therapy
CPT/HCPCS: 36415; 36600; 71045; 76705; 80048; 80053; 81001; 82803; 82948; 83605; 83690; 84484; 85025; 85027; 87040; 87635; 87804; 93005; 94640; 94664; 96365; 96372; 99285; G0378; J0696; J1956; J2060; J2270; J3410; J3480; J3490; J7030; A4600